=== PATIENT | male | born 1980 | race Caucasian/White ===

== ENCOUNTER 2020-01-09 15:26 | Emergency (ER) | payer OTHER ==
[2020-01-09] MEDS ORDERED: MORPHINE SULFATE 10 MG/ML INJ IV ONE (16:20)
--- NOTE | 2020-01-09 16:20 | RADIOLOGY REPORT (SQ) ---
EXAM DESCRIPTION: KNEE RIGHT 4 VIEWS IMAGES COMPLETED DATE/TIME: 01/09/2020 4:12 pm REASON FOR STUDY: pain and swelling COMPARISON: None. NUMBER OF VIEWS: Four views. TECHNIQUE: AP, lateral, and both oblique radiographic images acquired of the right knee. LIMITATIONS: None. FINDINGS: MINERALIZATION: Normal. BONES: Comminuted medial and lateral tibial plateau fractures. Lateral tibial plateau fracture is si gnificantly depressed. Comminuted proximal fibular fracture. JOINT: Hemarthrosis. SOFT TISSUES: No soft tissue swelling. No radio-opaque foreign body. OTHER: No other significant finding. IMPRESSION: 1. Medial and lateral tibial plateaus fractures. The lateral tibial plateau fracture is depressed a greater extent. No significant depression medially. 2. Comminuted proximal fibular fracture. 3. Probable hemarthrosis. TECHNICAL DOCUMENTATION: JOB ID: [id number] 2010 [employer]- All Rights Reserved Reading location - IP/workstation name: [email or web address]
[2020-01-09] MEDS ORDERED: ONDANSETRON HCL INJ/PF 4 MG/2 ML SDV IV ONE (16:21)
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
--- NOTE | 2020-01-09 16:49 | RADIOLOGY REPORT (SQ) ---
EXAM DESCRIPTION: ANKLE RIGHT COMPLETE IMAGES COMPLETED DATE/TIME: 01/09/2020 4:41 pm REASON FOR STUDY: trauma COMPARISON: None. NUMBER OF VIEWS: Three views. TECHNIQUE: AP, lateral, and oblique radiographic images acquired of the right ankle. LIMITATIONS: None. FINDINGS: MINERALIZATION: Normal. BONES: No acute fracture or dislocation. No worrisome bone lesions. JOINTS: No effusions. SOFT TISSUES: No soft tissue swelling. No foreign body. OTHER: No other significant finding. IMPRESSION: NEGATIVE STUDY OF THE RIGHT ANKLE. NO RADIOGRAPHIC EVIDENCE OF ACUTE INJURY. TECHNICAL DOCUMENTATION: JOB ID: [id number] 2010 [employer]- All Rights Reserved Reading location - IP/workstation name: [email or web address]
[2020-01-09 18:25] VITALS: BP 130/74
== END 2020-01-09 18:24 | disposition home or self-care (01) ==
LOC: ER 15:26
DX: S82.451A Displaced comminuted fracture of shaft of right fibula, initial encounter for closed fracture (principal); S82.141A Displaced bicondylar fracture of right tibia, initial encounter for closed fracture; X50.1XXA Overexertion from prolonged static or awkward postures, initial encounter; Y93.16 Activity, rowing, canoeing, kayaking, rafting and tubing; Y92.832 Beach as the place of occurrence of the external cause
CPT/HCPCS: 99284; 96374; 96375; 73610; 73564; J2270; J2405

== ENCOUNTER 2020-01-10 14:14 | Observation (INO) | payer OTHER ==
[~2020-01-10 14:14] MED LIST: DEXAMETHASONE SOD PHOSPHATE INJ 4 MG/1 ML VIAL ONE; ONDANSETRON HCL INJ/PF 4 MG/2 ML SDV ONE
[2020-01-10] MEDS ORDERED: CEFAZOLIN 2 GM/D5W RTU 2 GM/50 ML RTUPB IV PRN (15:09)
[2020-01-10] MEDS ORDERED: CEFAZOLIN 2 GM/D5W RTU 2 GM/50 ML RTUPB IV ONE (16:03)
[2020-01-10] MEDS ORDERED: ONDANSETRON HCL INJ/PF 4 MG/2 ML SDV ONE (16:06)
[2020-01-10] MEDS ORDERED: MIDAZOLAM 2 MG/2 ML INJ ONE (16:06)
[2020-01-10] MEDS ORDERED: FENTANYL CITRATE INJ/PF 100 MCG/2 ML AMPUL ONE (16:06)
[2020-01-10] MEDS ORDERED: MORPHINE SULFATE 10 MG/ML INJ ONE (16:06)
[2020-01-10] MEDS ORDERED: PROPOFOL INJ 200 MG/20 ML VIAL IV ONE (16:06)
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
[2020-01-10] MEDS ORDERED: PROMETHAZINE HCL INJ 25 MG/1 ML VIAL IV PRN ×2 (17:05)
[2020-01-10] MEDS ORDERED: MORPHINE SULFATE 10 MG/ML INJ IV PRN (17:05)
[2020-01-10] MEDS ORDERED: MEPERIDINE HCL/PF INJ 25 MG/1 ML DISP.SYRIN IV PRN (17:05)
[2020-01-10] MEDS ORDERED: DIPHENHYDRAMINE HCL 50 MG/ML VIAL IV PRN (17:05)
[2020-01-10] MEDS ORDERED: FENTANYL CITRATE INJ/PF 100 MCG/2 ML AMPUL IV PRN ×3 (17:05)
[2020-01-10] MEDS ORDERED: ONDANSETRON HCL INJ/PF 4 MG/2 ML SDV IV PRN ×2 (17:05→17:49)
[2020-01-10] MEDS ORDERED: HYDROMORPHONE HCL INJ/PF 2 MG/ML AMPULE IV PRN (17:49)
--- NOTE | 2020-01-10 17:50 | Discharge Summary ---
Discharge Summary (SDC) - Discharge Final Diagnosis: Right lateral tibial plateau fracture Date of Surgery: 01/10/20 Discharge Date: 01/10/20 Condition: Good Treatment or Instructions: Schedule Follow Up w/ Dr. Joseph Dolan @ [facility] to be seen in 10-14 days or as scheduled [place]: [place]: [place]: Ice and elevate NONWEIGHTBEARING right lower extremity May begin pin care with hydrogen peroxide If your toes become numb please aggressively elevate, if the sensation does not return within 30 minutes please return to the emergency department. May begin finger range of motion attempting to make full fist. You may also use acetaminophen (Tylenol) 1000 mg every 4-6 hours as needed for pain or fever. Please be aware that many medications contain acetaminophen, do not exceed a total of 1000 mg of acetaminophen every 6 hours. Stool softener of choice when on pain medication. ORAL NARCOTIC MEDICATION: You have been given a prescription for pain control. This medication is a narcotic. It's best taken with food, as nausea can result if taken on an empty stomach. Don't operate machinery or drive within six hours of taking this medication. Do not combine this medicine with alcohol, or with any medication which can cause sedation (such as cold tablets or sleeping pills) unless you get permission from the physician. Narcotics tend to cause constipation. If possible, drink plenty of fluids and eat a diet high in fiber and fruits. Please be aware that prescription narcotics also have the potential for abuse. People become addicted to these medications because of the general sense of wellbeing that they induce. This feeling along with a significant reduction in tension, anxiety, and aggression provides a stimulating seductive quality to these drugs. Once your pain is under control, we encourage you to discard your unused narcotics. Prescriptions: Oxycodone HCl [Oxy-Ir 5 mg Tablet] 5 mg PO Q6HP PRN #25 tab PRN Reason: Rivaroxaban [Xarelto 10 mg Tablet] 10 mg PO DAILY #7 tablet Discharge Diet: As Tolerated Respiratory Treatments at Home: Deep Breathing/Coughing Discharge Activity: No Driving, No Lifting Over 10 Pounds, No Lifting/Push/Pulling Report the Following to Your Physician Immediately: Fever over 101 Degrees, Unusual Bleeding, Redness, Swelling, Warmth, Increased Soreness
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
[2020-01-10] MEDS ORDERED: OXYCODONE-ACETAMINOPHEN 5-325 MG TABLET ONE (18:16)
--- NOTE | 2020-01-10 19:59 | RADIOLOGY REPORT (SQ) ---
EXAM DESCRIPTION: KNEE RIGHT 2 VIEWS; NO CHG FLUORO IMAGES COMPLETED DATE/TIME: 01/10/2020 6:03 pm REASON FOR STUDY: EXTERNAL FIXATION OF THE RT KNEE S82.141A DISPLACED BICONDYLAR FRACTURE OF RIGHT TIBIA, INIT COMPARISON: None. FLUOROSCOPY TIME: 0.6 minutes 5 images saved to PACS. TECHNIQUE: Intra-operative images acquired during surgical procedure to evaluate progress. NUMBER OF IMAGES: 5 LIMITATIONS: None. FINDINGS: 5 intraoperative fluoroscopic spot images were obtained and are submitted for administrati ve purposes only. Please refer to the operative report for full details regarding this procedure. IMPRESSION: IMAGE(S) OBTAINED DURING PROCEDURE. COMMENT: Quality ID [id number]: Final reports for procedures using fluoroscopy that document radiation exp osure indices, or exposure time and number of fluorographic images (if radiation exposure indices are not available) Please consult full operative report of the attending physician for description of the procedure. TECHNICAL DOCUMENTATION: JOB ID: [id number] 2010 [employer]- All Rights Reserved Reading location - IP/workstation name: [email or web address]
--- NOTE | 2020-01-10 19:59 | RADIOLOGY REPORT (SQ) ---
EXAM DESCRIPTION: KNEE RIGHT 2 VIEWS; NO CHG FLUORO IMAGES COMPLETED DATE/TIME: 01/10/2020 6:03 pm REASON FOR STUDY: EXTERNAL FIXATION OF THE RT KNEE S82.141A DISPLACED BICONDYLAR FRACTURE OF RIGHT TIBIA, INIT COMPARISON: None. FLUOROSCOPY TIME: 0.6 minutes 5 images saved to PACS. TECHNIQUE: Intra-operative images acquired during surgical procedure to evaluate progress. NUMBER OF IMAGES: 5 LIMITATIONS: None. FINDINGS: 5 intraoperative fluoroscopic spot images were obtained and are submitted for administrati ve purposes only. Please refer to the operative report for full details regarding this procedure. IMPRESSION: IMAGE(S) OBTAINED DURING PROCEDURE. COMMENT: Quality ID [id number]: Final reports for procedures using fluoroscopy that document radiation exp osure indices, or exposure time and number of fluorographic images (if radiation exposure indices are not available) Please consult full operative report of the attending physician for description of the procedure. TECHNICAL DOCUMENTATION: JOB ID: [id number] 2010 [employer]- All Rights Reserved Reading location - IP/workstation name: [email or web address]
[2020-01-11] MEDS: OXYCODONE-ACETAMINOPHEN 5-325 MG TABLET PO PRN ×2 (03:36→09:36)
--- NOTE | 2020-01-11 08:23 | PDOC PROGRESS REPORT ---
Subjective Date:: 01/11/20 Subjective:: Doing well this morning. No acute events overnight. No problems with hypoxia t his morning. Right lower extremity pain is improved and currently well controlled. Reason For Visit: S82.141A Physical Exam Vital Signs: Temp Pulse Resp BP Pulse Ox 97.6 F 70 18 153/88 H 98 01/11/20 06:44 01/11/20 06:44 01/11/20 06:44 01/11/20 06:44 01/11/20 06:44 Intake & Output 01/10/20 01/11/20 01/12/20 06:59 06:59 06:59 Intake Total 2460 Output Total 20 Balance 2440 Weight 106.5 kg Physical Exam: No acute distress, alert and x3 Right lower extremity -Pulses 2+ distally -Compartments soft -Sensation grossly intact to L3-4-5 S1 -Motor grossly intact to EHL TA gastroc and quad -Pin sites clean dry and intact, dressing clean dry and intact, well positioned in an external fixator with no loosening Results Impressions: Fluoroscopy 01/10/20 00:00 IMPRESSION: IMAGE(S) OBTAINED DURING PROCEDURE. Knee X-Ray 01/10/20 00:00 IMPRESSION: IMAGE(S) OBTAINED DURING PROCEDURE. Assessment & Plan - Diagnosis (1) Tibial plateau fracture, right Is this a current diagnosis for this admission?: Yes Plan: -Discharge home today Nonweightbearing right lower extremity Pin site care is been discussed with the patient to include every other day changes of dressings with Xeroform about the pins, Kerlix padding. In between dressing changes the patient may likely clean the pin sites with either dilute Betadine or peroxide. -Pain control as prescribed I have discussed with the patient he will need definitive management including removal of exfix and open reduction internal fixation. If he has any difficulty getting care in [place] I am happy to perform the definitive surgery here. - Time Time Spent with patient: Less than 15 minutes
[2020-01-11 09:00] VITALS: BP 127/81
[2020-01-11] MEDS ORDERED: INFLUENZA QUAD (6MOS+) 2020-21 VAC 0.5 ML SYR IM ONE (09:30)
== END 2020-01-11 10:10 | disposition home or self-care (01) ==
LOC: 4N 14:14 → OROUT 14:14 → EDSTATUS 16:00 → 4N 21:33 → OROUT 21:33 → 4N 01-11 10:10 → OROUT 01-11 10:10
PROVIDERS: ADMIT Orthopaedic Surgery; ATTEND Orthopaedic Surgery
DX: S82.141A Displaced bicondylar fracture of right tibia, initial encounter for closed fracture (principal); X58.XXXA Exposure to other specified factors, initial encounter; Y93.16 Activity, rowing, canoeing, kayaking, rafting and tubing; J95.89 Other postprocedural complications and disorders of respiratory system, not elsewhere classified; R09.02 Hypoxemia; Y83.8 Other surgical procedures as the cause of abnormal reaction of the patient, or of later complication, without mention of misadventure at the time of the procedure; M25.061 Hemarthrosis, right knee; Z20.828 Contact with and (suspected) exposure to other viral communicable diseases; Z23 Encounter for immunization
CPT/HCPCS: 20690; 20610; 0241U ×4; 73560; 90686; 01390; G0378 ×2; G0008; C1713 ×4; J2250; J1100; J3010; J2270; J2405; J2704; J0690; C9803; 90471